=== PATIENT | female | born 1945 | race Caucasian/White ===

== ENCOUNTER 2020-01-16 05:05 | Observation (INO) ==
--- NOTE | 2019-12-12 15:16 | PAT Medication Instructions ---
Medication Instructions Date of Service December 12, 2019 Home Medications Medication Instructions Recorded gabapentin 300 mg capsule 300 mg PO TID #90 cap 09/20/19 bupropion HCl 200 mg tablet,12 hr 200 mg PO BID #180 ea 10/02/19 sustained-release tramadol 50 mg tablet 100 mg PO Q12H PRN #60 tab 10/29/19 calcium carbonate 600 mg (1,500 mg)-vitamin D3 400 unit tablet 1 tab PO BID gabapentin 300 mg capsule 300 mg PO TID bupropion HCl 200 mg tablet,12 hr sustained-release 200 mg PO BID tramadol 50 mg tablet 100 mg PO Q12H PRN aspirin 1 tab PO QAM cholecalciferol (vitamin D3) 2,000 units PO QAM folic acid 1 mg PO QAM meloxicam 15 mg PO QAM omeprazole 40 mg PO QAM sertraline 100 mg PO QAM vitamin F75-[id number] acid 1 tab PO QAM ASK your surgeon for instructions meloxicam 15 mg PO QAM DO NOT take the morning of surgery calcium carbonate 600 mg (1,500 mg)-vitamin D3 400 unit tablet 1 tab PO BID cholecalciferol (vitamin D3) 2,000 units PO QAM folic acid 1 mg PO QAM vitamin I99-lzpfv acid 1 tab PO QAM Take morning of surgery With a small sip of water, OTHERWISE NOTHING TO EAT OR DRINK AFTER MIDNIGHT: gabapentin 300 mg capsule 300 mg PO TID bupropion HCl 200 mg tablet,12 hr sustained-release 200 mg PO BID tramadol 50 mg tablet 100 mg PO Q12H PRN (if needed, may be taken up to four hours before surgery) aspirin 1 tab PO QAM omeprazole 40 mg PO QAM sertraline 100 mg PO QAM Take evening before surgery calcium carbonate 600 mg (1,500 mg)-vitamin D3 400 unit tablet 1 tab PO BID gabapentin 300 mg capsule 300 mg PO TID bupropion HCl 200 mg tablet,12 hr sustained-release 200 mg PO BID tramadol 50 mg tablet 100 mg PO Q12H PRN (if needed) Other Notes If you have any questions please call us at [phone] or [phone] or [phone] or [phone]
--- NOTE | 2019-12-13 11:29 | Anesthesiology Consultation ---
Date of Service December 13, 2019 Assessment & Plan (1) Encounter for pre-operative examination: COVID Status: As of 12/12 assessment, patient denies travel to endemic area, known exposure/sick contacts, or symptoms of COVID19. Patient instructed that they and their household members must follow strict social distancing guidelines, wear a mask in public and avoid travel for 14 days prior to surgery. Preoperative COVID19 testing to be completed prior to surgery per surgeon's brandon ramirez (pt reports 01/09). Patient made aware to self-isolate as much as possible between COVID testing and surgery. Chart Review Chart Review: Acceptable Risk for Surgery and Patient seen in Pre Admission Testing Teaching & Discussion Instructed NPO after midnight before surgery, except medications with 15 cc of water. Medication instructions provided according to the PAT guidelines. History Surgery Operation Date: 01/16/20 08:45 Proposed Procedures p Left Total Knee Arthroplasty - Otilio Murphy MD Height/Weight Height: 5 ft 4 in Weight: 73.8 kg Allergies Allergy/AdvReac Type Severity Reaction Status Date / Time No Known Allergies Allergy Verified 12/11/19 12:48 Medications Home Medications Medication Instructions Recorded Confirmed Last Taken calcium carbonate 600 mg (1,500 1 tab PO BID #180 tab 01/12/19 12/11/19 Unknown mg)-vitamin D3 400 unit tablet gabapentin 300 mg capsule 300 mg PO TID #90 cap 09/20/19 12/11/19 Unknown bupropion HCl 200 mg tablet,12 hr 200 mg PO BID #180 ea 10/02/19 12/11/19 Unknown sustained-release tramadol 50 mg tablet 100 mg PO Q12H PRN #60 tab 10/29/19 12/11/19 Unknown aspirin 1 tab PO QAM 12/11/19 12/11/19 Unknown cholecalciferol (vitamin D3) 2,000 units PO QAM 12/11/19 12/11/19 Unknown folic acid 1 mg PO QAM 12/11/19 12/11/19 Unknown meloxicam 15 mg PO QAM 12/11/19 12/11/19 Unknown omeprazole 40 mg PO QAM 12/11/19 12/11/19 Unknown sertraline 100 mg PO QAM 12/11/19 12/11/19 Unknown vitamin S24-bbigf acid 1 tab PO QAM 12/11/19 12/11/19 Unknown Past Medical History Medical History Anxiety Depression GERD (gastroesophageal reflux disease) Neuropathy Osteoarthritis Exercise / Class Metabolic Activity II 4-5 Yardwork/Stairs/Walk up hill (Denies CP or SOB with 1 FOS) Past Family History Family History Mother Alcoholism Depression Suicide Father Myocardial infarction Hypertension Other No family history of adverse response to anesthesia Past Surgical History Surgical History H/O shoulder surgery Rt History of colonoscopy History of tonsillectomy History of tooth extraction Past Anesthesia History No Hx of Anesthesia Complications and No Family Hx of Anesthesia Complications History of PONV No Hx of PONV and No Hx of Motion Sickness Social History Smoking Status: Former smoker tobacco type: cigarettes Do You Dip or Chew Tobacco: No Smoking End Date: 30 years ago Hx Alcohol Use: No Hx Substance Use: No substance use type: does not use Review of Systems Pt denies any recent chest pain, shortness of breath, palpitations, cough, fever, URI, or uncontrolled acid reflux (controlled with med). Physical Exam Vital Signs BP: 114/68 P: 79bpm SPO2: 98% RA T: 98.4 F R: 12 ENMT Mouth: + dentures (upper and lower partials) and + loose teeth (very slightly loose upper incisors); no chipped teeth Thyromental Distance: > or= 3.5 Finger Breadths Mallampati Class: II Neck normal visual inspection; neck extension not limited Respiratory normal respiratory effort Auscultation: lungs clear to auscultation bilaterally Cardiovascular Rate/Rhythm: regular rate and regular rhythm Heart Sounds: no murmur Vessels: no carotid bruit Extremities: no edema Testing Laboratory Results 12/13/19 11:19 12/13/19 11:19 PT 10.6 Seconds (9.0-12.0) 12/13/19 11: INR 1.0 (0.9-1.1) 12/13/19 11:19 APTT 28.5 Seconds (21.0-31.0) 12/13/19 11:19 Hemoglobin A1c 5.7 % (4.5-5.6) H 12/13/19 11:19 Urine Color Yellow 12/13/19 11:19 Urine Appearance Clear (Clear) 12/13/19 11:19 Urine pH 6.5 (4.5-7.5) 12/13/19 11:19 Ur Specific [place] 1.008 (1.000-1.030) 12/13/19 11:19 Urine Protein Negative (Negative) 12/13/19 11:19 Urine Glucose (UA) Negative (Negative) 12/13/19 11:19 Urine Ketones Negative (Negative) 12/13/19 11:19 Urine Nitrite Negative (Negative) 12/13/19 11:19 Ur Leukocyte Esterase Trace (Negative) H 12/13/19 11:19 Urine WBC (Auto) 1-5 /hpf (0-5) 12/13/19 11:19 Urine RBC (Auto) 0-4 /hpf (0-4) 12/13/19 11:19 U Hyaline Cast (Auto) 0 /lpf (0-5) 12/13/19 11:19 U Epithel Cells (Auto) 10-20 /lpf (0-5) H 12/13/19 11:19 Urine Bacteria (Auto) Negative (Negative) 12/13/19 11:19 Blood Type B Positive 12/13/19 11:54 Antibody Screen NEGATIVE 12/13/19 11:54 Electrocardiogram Date: 12/13/19 Findings: + NSR @ (75bpm) Nonspecific ST abnormality. Chest X-Ray Date: 12/13/19 Findings: + NAD
[2019-12-13 12:03] LABS: Basophils # (auto) 0.02 K/uL (0-0.2); Basophils % (auto) 0.2 %; Eosinophils # (auto) 0.19 K/uL (0-0.5); Eosinophils % (auto) 2.1 %; Hematocrit (blood only) 45.6 % (37-47); Hemoglobin 14.3 g/dL (12.0-16.0); Immature Granulocytes # (auto) 0.02 K/uL (0.00-0.02); Immature Granulocytes % (auto) 0.2 %; Lymphocytes # (auto) 2.04 K/uL (1.2-3.4); Lymphocytes % (auto) 22.6 %; Mean Corpuscular Hemoglobin 27.8 pg (25-34); Mean Corpuscular Hgb Conc 31.4 g/dL (32-36); Mean Corpuscular Volume 88.7 fL (80-100); Mean Platelet Volume 10.3 fL (7.4-10.4); Monocytes # (auto) 0.52 K/uL (0.11-0.59); Monocytes % (auto) 5.8 %; Neutrophils # (auto) 6.23 K/uL (1.4-6.5); Neutrophils % (auto) 69.1 %; Platelet Count 312 K/uL (130-400); RDW Coefficient of Variation 13.5 % (11.5-14.5); RDW Standard Deviation 44.1 fL (36.4-46.3); Red Blood Count 5.14 M/uL (4.2-5.4); White Blood Count 9.02 K/uL (4.8-10.8)
--- NOTE | 2019-12-13 12:06 | XRay Report ---
XR chest Pre-admission PA/Lat CLINICAL HISTORY: Preoperative chest COMPARISON STUDY: No previous studies for comparison. FINDINGS: The cardiac and mediastinal contours are normal. There is no evidence of focal pulmonary co nsolidation. There is no evidence of failure. No pleural effusions are visualized.[ IMPRESSION: No active disease in the chest. ACT 112: Negative or not required by law. Electronically signed by: Nicola Romo M.D. 12/13/2019 12:05 PM
[2019-12-13 12:10] LABS: Appearance Urine Clear (Clear); Bacteria Urine Automated Negative (Negative); Bilirubin Urine Negative (Negative); Blood Urine Negative (Negative); Cast Urine Automated 0 /lpf (0-5); Color Urine Yellow; Glucose Urine UA Negative (Negative); Ketones Urine Negative (Negative); Leukocyte Esterase Urine Trace (Negative); Nitrite Urine Negative (Negative); Protein Urine Negative (Negative); RBC Urine Automated 0-4 /hpf (0-4); Specific Gravity Urine 1.008 (1.000-1.030); Urobilinogen Urine Negative (Negative); pH Urine 6.5 (4.5-7.5)
[2019-12-13 12:18] LABS: Partial Thromboplastin Time 28.5 Seconds (21.0-31.0); Prothrombin Time 10.6 Seconds (9.0-12.0)
[2019-12-13 12:25] LABS: Estimated Average Glucose 117 mg/dl; Hemoglobin A1C 5.7 % (4.5-5.6)
--- NOTE | 2019-12-13 12:49 | Electrocardiogram Report ---
Test Reason : Blood Pressure : / mmHG Vent. Rate : 075 BPM Atrial Rate : 075 BPM P-R Int : 184 ms QRS Dur : 084 ms QT Int : 382 ms P-R-T Axes : 072 001 071 degrees QTc Int : 426 ms Normal sinus rhythm Nonspecific ST abnormality No previous ECGs available Confirmed by Alexandre Buchanan ([id number]) on 12/13/2019 12:48:44 PM Referred By: Otilio Murphy Confirmed By:Luis A Buchanan
[2019-12-13 13:48] LABS: Albumin Level 3.7 gm/dl (3.4-5.0); BUN Creatinine Ratio 10.7 (10-20); Calcium 9.2 mg/dl (8.5-10.1); Creatinine Clr Calc Pharmacy 44.8 ml/min; Est GFR (African American) 57.7; Est GFR (Non-African American) 49.8; Potassium 4.3 mmol/L (3.5-5.1)
--- NOTE | 2020-01-15 19:43 | History and Physical Report ---
DATE OF ADMISSION: 01/16/2020 CHIEF COMPLAINT: Chronic left knee pain and instability. HISTORY OF PRESENT ILLNESS: This is a 74-year-old female patient of Dr. Murphy'floresita complaining of chronic left knee pain, longstanding, now progressively getting worse. The patient has failed conservative treatment including tramadol, anti-inflammatories, home exercise program and the use of a brace. She has been diagnosed with end-stage osteoarthritis per clinical and radiographic exams. The patient has increased pain with weightbearing activities and her pain does interfere with her activities of daily living. PAST MEDICAL HISTORY: Acid reflux, rheumatoid arthritis, otherwise a healthy 74-year-old female. SOCIAL HISTORY: Nonsmoker and nondrinker. PAST SURGICAL HISTORY: Bilateral shoulder surgery in the past. FAMILY HISTORY: Noncontributory. REVIEW OF SYSTEMS: Chronic left knee pain and instability. Otherwise, denies any shortness of breath, chest pain, nausea, vomiting or any other joint complaints. MEDICATIONS: 1. Sertraline 100 mg daily. 2. Omeprazole 40 mg daily. 3. Bupropion 200 mg twice daily. 4. Gabapentin 100 mg twice daily. 5. Tramadol 50 mg as needed. 6. Aspirin 81 mg daily. 7. Vitamin D3 50 mcg daily. 8. Calcium carbonate with vitamin D3 600 mg daily. 9. Meloxicam 15 mg daily. 10. Vitamin B12 daily. 11. Folic acid daily. ALLERGIES: No known drug allergies. PHYSICAL EXAMINATION: GENERAL: Well-developed, well-nourished 74-year-old female in no acute distress. She is alert and oriented x3 and pleasant. HEENT: Normocephalic, atraumatic. Extraocular motions are intact. Pupils are equal and reactive to light. HEART: Regular rate and rhythm, no murmurs. LUNGS: Clear. ABDOMEN: Soft, nontender, bowel sounds present. EXTREMITIES: Left knee valgus deformity, lateral joint line tenderness, mild effusion. Positive lateral Tamanna's. Limited motion of 120. 5/5 strength. Neurologically and neurovascularly intact left lower extremity. DIAGNOSES: Left knee end-stage osteoarthritis, rheumatoid arthritis, acid reflux. PLAN: The patient was advised of her diagnosis. Indications, risks, benefits, postop course have all been reviewed. The patient wished to proceed with a left total knee arthroplasty. Necessary consent forms, preoperative testing and clearances will be obtained.
[2020-01-16] MEDS ORDERED: TRANEXAMIC ACID 1,000 MG **IV Pre-op IV SCH (06:00)
[2020-01-16] MEDS ORDERED: ROPIVACAINE 0.5% HCL/PF 150 MG, BUPIVACAINE 0.5% MPF 30 ML, EPINEPHrine 30MG/30ML (OR U... INSTIL SCH (06:00)
[2020-01-16] MEDS ORDERED: LR 500ML BOLUS, THEN 15ML/HR IV SCH (06:00)
[2020-01-16] MEDS ORDERED: ACETAMINOPHEN 500 MG TAB PO SCH (06:00)
[2020-01-16] MEDS ORDERED: GABAPENTIN 300 MG CAP PO SCH (06:00)
[2020-01-16] MEDS ORDERED: FAMOTIDINE 20 MG TAB PO SCH (06:00)
[2020-01-16] MEDS ORDERED: CeleBREX 200 MG CAP PO SCH (06:00)
[2020-01-16] MEDS ORDERED: dexAMETHasone 4 MG TAB PO SCH (06:00)
[2020-01-16] MEDS ORDERED: METOCLOPRAMIDE HCL 10 MG TABLET PO SCH (06:00)
[2020-01-16] MEDS ORDERED: ceFAZolin 1000MG 1,000 MG/7.5 ML SYR IV SCH (06:00)
[2020-01-16] MEDS ORDERED: TRANEXAMIC ACID 1,000 MG **IV Intra-op IV SCH (06:00)
[2020-01-16] MEDS ORDERED: BUPIVACAINE 0.5 % 5 MG/1 ML PF 10ML VIAL ONE (06:23)
[2020-01-16] MEDS ORDERED: BUPIVACAINE 0.25% 30 ML VIAL ONE (06:23)
[2020-01-16] MEDS ORDERED: ePHEDrine sulfate 50 MG/ML AMP IV PRN (06:32)
[2020-01-16] MEDS ORDERED: LIDOCAINE HCL 2% 2 ML VIAL/AMP(20MG/ML) INFIL ONE (06:32)
[2020-01-16] MEDS ORDERED: fentaNYL citrate 100 MCG/2 ML VIAL IV PRN (06:32)
[2020-01-16] MEDS ORDERED: PROPOFOL IV EMULSION 10 MG/ML 20 ML VIAL IV ONE (06:32)
[2020-01-16] MEDS ORDERED: ONDANSETRON INJ 2 MG/ML 2 ML VIAL ONE (06:32)
[2020-01-16] MEDS ORDERED: ATROPINE SULFATE 0.1 MG/ML 10ML SYR IV PRN (06:32)
[2020-01-16] MEDS ORDERED: ONDANSETRON INJ 2 MG/ML 2 ML VIAL IV PRN ×2 (06:32→12:52)
[2020-01-16] MEDS ORDERED: MIDAZOLAM HCL 1 MG/ML 2ML VIAL ONE (06:33)
[2020-01-16] MEDS ORDERED: fentaNYL citrate 100 MCG/2 ML VIAL ONE (06:33)
[2020-01-16] MEDS ORDERED: ORTHO JOINT ANESTHETIC ONE (06:41)
[2020-01-16] MEDS ORDERED: BACITRACIN INJ 50,000 UNIT VIAL ONE (06:45)
--- NOTE | 2020-01-16 06:45 | History & Physical Bridge Note ---
Date of Service January 16, 2020 History & Physical Bridge Note I have examined the patient, reviewed the History & Physical and in the interval since the performance of the History & Physical I have noted the following changes of clinical significance: no changes noted
--- NOTE | 2020-01-16 08:52 | Operative Report ---
Post Operative Report Pre & Post Diagnosis Operation Date: 01/16/20 07:00 Pre-Op Diagnosis: Osteoarthritis, Left Knee Post-Op Diagnosis: Osteoarthritis, Left Knee I identified the patient and participated in the time-out.: Yes Procedure Operation Date: 01/16/20 07:00 Actual Procedures p Left Total Knee Arthroplasty(Left) - Otilio Murphy MD Surgeon Otilio Murphy MD Fruit Trimmer Giovanni MELÉNDEZ Estimated Blood Loss 5 Findings Consistent with Post-Op Diagnosis Specimens Bone cuts Drains 2 Hemovac Anesthesia Type MAC Spinal Regional Complications none Disposition Accompanied Patient To Recovery: No Disposition: Recovery Room Indications 74-year-old female with chronic bilateral knee pain with valgus knees [id number] lateral compartment bilaterally left more painful than right. Description of Procedure Patient was taken to the operating room placed supine on the operating table and anesthetized under spinal MAC regional anesthesia. Exam under anesthesia demonstrated 0 through 100 degrees range of motion valgus knee no pseudolaxity. A pneumatic tourniquet was placed about the thigh of the left lower extremity. The left lower extremity was prepped and draped in usual fashion. The leg was elevated exsanguinated with an Esmarch bandage and the pneumatic was raised to 325 mm mercury. An anterior incision was made across the left knee. The skin was incised longitudinally subcutaneous flaps were elevated and an incision was made through the medial retinaculum extending up into the mid third of the quadriceps tendon and extended down to the medial tibial tubercle. Intra- articular findings demonstrated patellofemoral and lateral compartment osteoarthritis grade 4 lesion lateral facet patella and grade 4 osteoarthritis lateral compartment [id number]. The knee was exposed by excising the infrapatellar fat pad, excising the meniscal remnants and anterior cruciate ligament. Any inflamed synovial tissue was resected. The fat pad over the anterior femur was resected for placement of the component in that area. The lateral synovial bands were release. The femur was exposed. The custom femoral cutting block was pinned in position. The distal femoral cutting block was applied. The distal femoral cut was made with the oscillating saw. The size 9, 4-in-1 cutting block was placed. The anterior and posterior chamfer cuts were made. The knee was extended and a subperiosteal peel lateral release was performed around the patella. The patella width was measured and width was reproduced using freehand cut technique. The 32 x 8.5 millimeter symmetrical patella was used. 3 drill holes are made for the pegs. The tibia was exposed. A custom tibial cutting block was positioned and drill holes were made for the cutting guide. Cutting guide was placed and the proximal cut was made with the oscillating saw. All osteophytes were resected. The lamina international logistics analyst was used to assess ligamentous balance and the ligaments were balanced in extension and flexion. The tibia was reexposed and measured for a size D tibial component. This was externally rotated in line with the tibial tubercle and the fixation pins were drilled. The proximal tibia was fashioned with the drill and punch. The size 9 CR femoral trial was inserted. The trial MC inserts were used. The 10 MC mm insert gave balanced ligaments through full range of motion. The patella tracked centrally. the trials were removed. The orthomix anesthetic cocktail was injected per protocol. The knee was then copiously irrigated with pulsatile lavage antibiotic solution with bacitracin. The final components were cemented with Simplex cement. The final components were persona left narrow size 9 CR femoral component, D tibia, 10 mm MC tibial polyethylene, 32 x 8.5 mm symmetrical patella. After the cement cured with the knee in full extension the Betadine soak was used per protocol. The knee joint was copiously irrigated with antibiotic solution with bacitracin. 2 drains were brought out laterally and connected to a Hemovac. The quadriceps tendon and medial retinaculum were closed with interrupted [id number] #1 Vicryl sutures. The knee was taken through a full range of motion and repair was secure. The subcutaneous tissues were closed with 2-0 Vicryl sutures and skin was closed with joseline. Sterile dressings were applied and the patient tolerated the procedure well. Giovanni MELÉNDEZ my physician assistant financial accountant, assisted in soft tissue retraction instrument management leg positioning the closure and will participate in the postoperative care of the patient. I attest to the content of the Intraoperative Record and any orders documented therein. Any exceptions are noted below.
--- NOTE | 2020-01-16 09:59 | XRay Report ---
XR knee LT 1 or 2V routine CLINICAL HISTORY: Postoperative evaluation. COMPARISON: None FINDINGS: Alignment of the total left knee arthroplasty is anatomic. There is no periprosthetic frac ture or unexpected radiopaque foreign body. There are drains and skin josleine. IMPRESSION: Expected findings following total left knee arthroplasty. ACT 112: Negative or not required by law. Electronically signed by: Dusty Oliva M.D. 01/16/2020 9:57 AM
[2020-01-16] MEDS ORDERED: MAGNESIUM HYDROXIDE SUSP 30 ML UDC PO PRN (12:52)
[2020-01-16] MEDS ORDERED: bisacodyL 10 MG SUPP PR PRN (12:52)
[2020-01-16] MEDS ORDERED: oxyCODONE HCL IR 5 MG TAB (IMMEDIATE RELEASE) PO PRN (12:52)
[2020-01-16] MEDS ORDERED: HYDROmorphone INJ 0.5 MG/0.5 ML SYR IV PRN (12:52)
[2020-01-16] MEDS ORDERED: NALOXONE HCL 0.4 MG/1 ML VIAL/CARP IV PRN (12:52)
[2020-01-16] MEDS: SODIUM CHLORIDE 0.9% 1000ML 1,000 ML IV SCH ×2 (13:34→22:41)
[2020-01-16] MEDS: ACETAMINOPHEN 500 MG TAB PO SCH ×2 (14:17→21:30)
[2020-01-16] MEDS: GABAPENTIN 300 MG CAP PO SCH ×2 (14:50→20:41)
--- NOTE | 2020-01-16 14:53 | Anesthesiology Progress Note ---
Date of Service January 16, 2020 Anesthesia Post Procedure Vital Signs Vital Signs: Temp Pulse Pulse Pulse Resp BP BP 01/16/20 14:13 36.5 C 82 16 98/52 L 01/16/20 13:10 36.7 C 76 18 104/57 L 01/16/20 12:10 36.4 C L 71 18 95/57 L 01/16/20 11:40 36.7 C 70 18 102/65 01/16/20 11:30 36.3 C L 73 14 106/63 01/16/20 11:15 74 15 102/59 L 01/16/20 11:00 74 19 96/57 L 01/16/20 10:45 73 12 96/56 L 01/16/20 10:30 75 17 95/59 L 01/16/20 10:15 70 16 106/62 01/16/20 10:00 70 15 109/67 01/16/20 09:45 69 14 111/62 01/16/20 09:35 69 13 110/63 01/16/20 09:25 36.3 C L 70 21 114/64 01/16/20 09:15 69 14 109/66 01/16/20 09:05 70 13 115/61 01/16/20 08:59 36.5 C 70 13 101/55 L 01/16/20 05:15 36.8 C 78 16 140/86 Pulse Ox 01/16/20 14:13 96 01/16/20 13:10 97 01/16/20 12:10 95 01/16/20 11:40 94 01/16/20 11:30 97 01/16/20 11:15 96 01/16/20 11:00 96 01/16/20 10:45 96 01/16/20 10:30 98 01/16/20 10:15 95 01/16/20 10:00 93 01/16/20 09:45 92 01/16/20 09:35 92 01/16/20 09:25 96 01/16/20 09:15 92 01/16/20 09:05 92 01/16/20 08:59 92 01/16/20 05:15 96 Transfer of Care Handoff Completed per policy Notes Mental Status: alert / awake / arousable and participated in evaluation Patient Amnestic to Procedure: Yes Nausea / Vomiting: adequately controlled Pain: adequately controlled Airway Patency, RR, SpO2: stable & adequate BP & HR: stable & adequate Hydration State: stable & adequate Neuraxial Anesthesia: was administered and sensory block is resolving Anesthetic Complications: no major complications apparent and Pt Satisfied with anesthetic care
--- NOTE | 2020-01-16 15:24 | Hospitalist Consultation ---
Date of Consultation January 16, 2020 Assessment & Plan (1) Post-operative state: Post TKA 01/15 Pain control, dvt proph per primary Monitor for acute blood loss - cbc am (2) Depression: continue bupropion, sertraline (3) Hypotension: Blood pressure 98/52, asymptomatic Continue NSS @ 100 mls/hr (4) Pre-diabetes: Last A1c in December 08.7 Monitor bsgs on morning prp especially with perioperative dexamethasone given (5) GERD (gastroesophageal reflux disease): Continue ppi Medicine will sign off at this time. Please call with any questions or concerns History of Present Illness Attending Physician: Otilio Murphy MD History of Present Illness Ms. Valadez is post TKA today. She is feeling well, no complaints. Pmhx: depression Family hx: depression Social: lives alone, , non smoker, no alcohol Allergies Allergy/AdvReac Type Severity Reaction Status Date / Time No Known Allergies Allergy Verified 01/16/20 05:30 Home Medications Home Medications Medication Instructions Recorded Confirmed Type calcium carbonate 600 mg (1,500 1 tab PO BID #180 tab 01/12/19 01/16/20 History mg)-vitamin D3 400 unit tablet gabapentin 300 mg capsule 300 mg PO TID #90 cap 09/20/19 01/16/20 Rx bupropion HCl 200 mg tablet,12 hr 200 mg PO BID #180 ea 10/02/19 01/16/20 Rx sustained-release tramadol 50 mg tablet 100 mg PO Q12H PRN #60 tab 10/29/19 01/16/20 Rx aspirin 1 tab PO QAM 12/11/19 01/16/20 History cholecalciferol (vitamin D3) 2,000 units PO QAM 12/11/19 01/16/20 History folic acid 1 mg PO QAM 12/11/19 01/16/20 History meloxicam 15 mg PO QAM 12/11/19 01/16/20 History omeprazole 40 mg PO QAM 12/11/19 01/16/20 History sertraline 100 mg PO QAM 12/11/19 01/16/20 History vitamin L04-jjnfr acid 1 tab PO QAM 12/11/19 01/16/20 History Patient History Medical History (Updated 01/16/20 @ 15:22 by PAULA Benito) Anxiety Depression GERD (gastroesophageal reflux disease) Neuropathy Osteoarthritis Surgical History (Updated 01/16/20 @ 15:17 by PAULA Benito) H/O shoulder surgery Rt History of colonoscopy History of tonsillectomy History of tooth extraction Family History Mother Alcoholism Depression Suicide Father Myocardial infarction Hypertension Other No family history of adverse response to anesthesia Social History Smoking Status: Former smoker Age Started Using Tobacco: 31; Age Quit Using Tobacco: 46; Smoking End Date: 30 years ago; Second Hand Exposure: No; Do You Dip or Chew Tobacco: No; Tobacco Cessation Education Requested by Patient: No Hx Alcohol Use: No Hx Substance Use: No Preferred Language: Kenyan Communication Ability: Effective Visual Impairment: No Limitations Hearing Ability: Normal Diabetes Specialist Required: No Beliefs That Will Affect Care: None marital status: / Current Living Situation: Alone Current Living Situation Comment: dtr will be staying pt following surgery current occupational status: retired Feels Safe at Home: Yes Safety Concerns: Feels Safe At This Time Childhood Exposure to Second-Hand Smoke: Yes caffeine: Yes (coffee) Dental Care, Regularly: Yes Physical Activity Frequency: 3-4 Times per Week Physical Activity Frequency Comment: walking Seatbelt Use: always Sunscreen Use: No Assistive Devices: Glasses Assistive Devices Comment: upper and lower partial Review of Systems Constitutional: no fever and no body aches Respiratory: no cough, no chest congestion and no dyspnea Cardiovascular: no chest pain and no dyspnea Gastrointestinal: no abdominal pain and no vomiting Genitourinary: no dysuria and no urinary hesitancy Musculoskeletal: no back pain and no joint pain Integumentary: no rash Physical Exam Physical Exam: General: no distress Eyes: normal inspection, PERLL Respiratory: chest non tender, clear to auscultation, normal breath sounds, no respiratory distress, no accessory muscle use Cardiac: regular rate and rhythm, no rub or gallop, no murmur, no edema, no jvd GI/: active bowel sounds, no abd pain or tenderness, soft, non distended Extremities: normal range of motion, normal strength, non tender Neuro/Psych: alert and oriented x 3, normal mood and affect Skin: normal color, dry Results & Data Results & Data ([facility]) Vital Signs (Past 12 Hours) Vital Signs Temp Pulse Pulse Pulse Resp BP BP 01/16/20 14:13 36.5 C 82 16 98/52 L 01/16/20 13:10 36.7 C 76 18 104/57 L 01/16/20 12:10 36.4 C L 71 18 95/57 L 01/16/20 11:40 36.7 C 70 18 102/65 01/16/20 11:30 36.3 C L 73 14 106/63 01/16/20 11:15 74 15 102/59 L 01/16/20 11:00 74 19 96/57 L 01/16/20 10:45 73 12 96/56 L 01/16/20 10:30 75 17 95/59 L 01/16/20 10:15 70 16 106/62 01/16/20 10:00 70 15 109/67 01/16/20 09:45 69 14 111/62 01/16/20 09:35 69 13 110/63 01/16/20 09:25 36.3 C L 70 21 114/64 01/16/20 09:15 69 14 109/66 01/16/20 09:05 70 13 115/61 01/16/20 08:59 36.5 C 70 13 101/55 L 01/16/20 05:15 36.8 C 78 16 140/86 Pulse Ox 01/16/20 14:13 96 01/16/20 13:10 97 01/16/20 12:10 95 01/16/20 11:40 94 01/16/20 11:30 97 01/16/20 11:15 96 01/16/20 11:00 96 01/16/20 10:45 96 01/16/20 10:30 98 01/16/20 10:15 95 01/16/20 10:00 93 01/16/20 09:45 92 01/16/20 09:35 92 01/16/20 09:25 96 01/16/20 09:15 92 01/16/20 09:05 92 01/16/20 08:59 92 01/16/20 05:15 96 PG Care Time/CCT Total # of Minutes Spent Total Time Spent with Patient: Total time spent is greater than 50% in coor dination of care (as documented) at patient's floor/unit and/or counseling patient: Coding Level of Care Code 67516 Inpt Consult Level 4 Diagnoses Post-operative state Z98.890 Depression F32.9 Hypotension I95.9 Pre-diabetes R73.03 GERD (gastroesophageal reflux disease) K21.9
[2020-01-16] MEDS: ceFAZolin 1000MG 1,000 MG/7.5 ML SYR IV SCH ×2 (15:30→22:33)
[2020-01-16] MEDS: FERROUS GLUCONATE 324 MG TAB PO SCH (17:45)
[2020-01-16] MEDS: buPROPion SR 100 MG TABCR PO SCH (20:41)
[2020-01-16] MEDS: ASPIRIN 81 MG ECTAB PO SCH (20:41)
[2020-01-16] MEDS: DOCUSATE SODIUM 100 MG CAP PO SCH (20:41)
[2020-01-16] MEDS: CeleBREX 200 MG CAP PO SCH (20:41)
[2020-01-16] MEDS ORDERED: SENNA 8.6 MG TAB PO SCH (21:00)
[2020-01-17] MEDS: ACETAMINOPHEN 500 MG TAB PO SCH ×2 (05:56→13:31)
[2020-01-17 07:22] LABS: Hematocrit (blood only) 33.1 % (37-47); Hemoglobin 10.6 g/dL (12.0-16.0); Mean Corpuscular Hemoglobin 28.6 pg (25-34); Mean Corpuscular Volume 89.2 fL (80-100); Mean Platelet Volume 10.5 fL (7.4-10.4); Platelet Count 221 K/uL (130-400); RDW Coefficient of Variation 13.6 % (11.5-14.5); RDW Standard Deviation 44.8 fL (36.4-46.3); Red Blood Count 3.71 M/uL (4.2-5.4); White Blood Count 11.84 K/uL (4.8-10.8)
[2020-01-17 07:46] LABS: BUN Creatinine Ratio 15.3 (10-20); Creatinine Clr Calc Pharmacy 49.7 ml/min; Est GFR (African American) 67.2; Est GFR (Non-African American) 57.9; Potassium 4.1 mmol/L (3.5-5.1)
--- NOTE | 2020-01-17 08:15 | Orthopedic Progress Note ---
Date of Service January 17, 2020 Assessment & Plan (1) Osteoarthritis of left knee: Stop day 1 status post left total knee arthroplasty. Mild leukocytosis-patient asymptomatic at this time. Likely due to surgical stress and preoperative steroids. PT/OT protocols. Weightbearing as tolerated. DVT prophylaxis-aspirin p.o. twice daily, SCDfloresita, JOVANY barton. Pain management as written. DC planning-patient is planning for home health services upon discharge. Admission and Anticipated Discharge Date Admission Date: January 16, 2020 Subjective Postop day 1 Patient sitting up in bed this morning. Awake and alert. Complaints this morning. Pain is controlled. Denies shortness of breath, chest pain, lightheadedness. Physical Exam Physical Exam: Dressings are clean, dry, and intact. Calves are soft and nontender. Neurovascular intact. Toes are mobile. She has good dorsiflexion and plantarflexion of the left foot and ankle. Hemovac drainage was 80 mL from the previous shift. Results & Data ([facility]) Vital Signs (Past 12 Hours) Vital Signs Temp Pulse Resp BP BP Pulse Ox 01/17/20 07:30 36.6 C 73 16 105/66 95 01/17/20 04:00 36.8 C 81 14 97/58 L 95 01/16/20 23:31 36.7 C 77 14 107/65 93 Laboratory Results Laboratory Results WBC 11.84 K/uL (4.8-10.8) H 01/17/20 06:52 RBC 3.71 M/uL (4.2-5.4) L 01/17/20 06:52 Hgb 10.6 g/dL (12.0-16.0) L 01/17/20 06:52 Hct 33.1 % (37-47) L 01/17/20 06:52 MCV 89.2 fL (80-100) 01/17/20 06:52 MCH 28.6 pg (25-34) 01/17/20 06:52 MCHC 32.0 g/dL (32-36) 01/17/20 06:52 RDW Std Deviation 44.8 fL (36.4-46.3) 01/17/20 06:52 RDW Coeff of Sammy 13.6 % (11.5-14.5) 01/17/20 06:52 Plt Count 221 K/uL (130-400) 01/17/20 06:52 MPV 10.5 fL (7.4-10.4) H 01/17/20 06:52 Immature Gran % (Auto) 0.2 % 12/13/19 11:19 Neut % (Auto) 69.1 % 12/13/19 11:19 Lymph % (Auto) 22.6 % 12/13/19 11:19 [place] % (Auto) 5.8 % 12/13/19 11:19 Eos % (Auto) 2.1 % 12/13/19 11:19 Baso % (Auto) 0.2 % 12/13/19 11:19 Neut # (Auto) 6.23 K/uL (1.4-6.5) 12/13/19 11:19 Lymph # (Auto) 2.04 K/uL (1.2-3.4) 12/13/19 11:19 [place] # (Auto) 0.52 K/uL (0.11-0.59) 12/13/19 11:19 Eos # (Auto) 0.19 K/uL (0-0.5) 12/13/19 11:19 Baso # (Auto) 0.02 K/uL (0-0.2) 12/13/19 11:19 Immature Gran # (Auto) 0.02 K/uL (0.00-0.02) 12/13/19 11:19 PT 10.6 Seconds (9.0-12.0) 12/13/19 11:19 INR 1.0 (0.9-1.1) 12/13/19 11:19 APTT 28.5 Seconds (21.0-31.0) 12/13/19 11:19 PTT Ratio 1.0 12/13/19 11:19 Sodium 144 mmol/L (136-145) 01/17/20 06:52 Potassium 4.1 mmol/L (3.5-5.1) 01/17/20 06:52 Chloride 115 mmol/L (98-107) H 01/17/20 06:52 Carbon Dioxide 24 mmol/L (21-32) 01/17/20 06:52 Anion Gap 5.0 (3-11) 01/17/20 06:52 BUN 15 mg/dl (7-18) 01/17/20 06:52 Creatinine 0.97 mg/dl (0.6-1.2) 01/17/20 06:52 Est Cr Clr Drug Dosing 49.7 ml/min 01/17/20 06:52 Est GFR ( Amer) 67.2 01/17/20 06:52 Est GFR (Non-Af Amer) 57.9 01/17/20 06:52 BUN/Creatinine Ratio 15.3 (10-20) 01/17/20 06:52 Glucose 95 mg/dl (70-99) 01/17/20 06:52 Estimat Average Glucose 117 mg/dl 12/13/19 11:19 Hemoglobin A1c 5.7 % (4.5-5.6) H 12/13/19 11:19 Calcium 8.0 mg/dl (8.5-10.1) L 01/17/20 06:52 Albumin 3.7 gm/dl (3.4-5.0) 12/13/19 11:19 Urine Color Yellow 12/13/19 11:19 Urine Appearance Clear (Clear) 12/13/19 11:19 Urine pH 6.5 (4.5-7.5) 12/13/19 11:19 Ur Specific [place] 1.008 (1.000-1.030) 12/13/19 11:19 Urine Protein Negative (Negative) 12/13/19 11:19 Urine Glucose (UA) Negative (Negative) 12/13/19 11:19 Urine Ketones Negative (Negative) 12/13/19 11:19 Urine Blood Negative (Negative) 12/13/19 11:19 Urine Nitrite Negative (Negative) 12/13/19 11:19 Urine Bilirubin Negative (Negative) 12/13/19 11:19 Urine Urobilinogen Negative (Negative) 12/13/19 11:19 Ur Leukocyte Esterase Trace (Negative) H 12/13/19 11:19 Urine WBC (Auto) 1-5 /hpf (0-5) 12/13/19 11:19 Urine RBC (Auto) 0-4 /hpf (0-4) 12/13/19 11:19 U Hyaline Cast (Auto) 0 /lpf (0-5) 12/13/19 11:19 U Epithel Cells (Auto) 10-20 /lpf (0-5) H 12/13/19 11:19 Urine Bacteria (Auto) Negative (Negative) 12/13/19 11:19 Blood Type B Positive 12/13/19 11:54 Antibody Screen NEGATIVE 12/13/19 11:54
[2020-01-17] MEDS: GABAPENTIN 300 MG CAP PO SCH ×2 (08:47→13:31)
[2020-01-17] MEDS: CeleBREX 200 MG CAP PO SCH (08:48)
[2020-01-17] MEDS: FERROUS GLUCONATE 324 MG TAB PO SCH (08:48)
[2020-01-17] MEDS: DOCUSATE SODIUM 100 MG CAP PO SCH (08:48)
[2020-01-17] MEDS: ASPIRIN 81 MG ECTAB PO SCH (08:48)
[2020-01-17] MEDS: buPROPion SR 100 MG TABCR PO SCH (08:49)
[2020-01-17] MEDS ORDERED: PANTOprazole 40 MG TAB PO SCH (09:00)
[2020-01-17] MEDS ORDERED: MULTIVITAMIN TAB PO SCH (09:00)
[2020-01-17] MEDS ORDERED: SERTRALINE HCL 100 MG TABLET PO SCH (09:00)
--- NOTE | 2020-01-20 07:24 | Discharge Summary ---
Date of Service January 20, 2020 Admission HPI Per Admitting Provider HISTORY OF PRESENT ILLNESS: This is a 74-year-old female patient of Dr. Murphy'floresita complaining of chronic left knee pain, longstanding, now progressively getting worse. The patient has failed conservative treatment including tramadol, anti-inflammatories, home exercise program and the use of a brace. She has been diagnosed with end-stage osteoarthritis per clinical and radiographic exams. The patient has increased pain with weightbearing activities and her pain does interfere with her activities of daily living. Admission Exam Per Admitting Provider PHYSICAL EXAMINATION: GENERAL: Well-developed, well-nourished 74-year-old female in no acute distress. She is alert and oriented x3 and pleasant. HEENT: Normocephalic, atraumatic. Extraocular motions are intact. Pupils are equal and reactive to light. HEART: Regular rate and rhythm, no murmurs. LUNGS: Clear. ABDOMEN: Soft, nontender, bowel sounds present. EXTREMITIES: Left knee valgus deformity, lateral joint line tenderness, mild effusion. Positive lateral Tamanna's. Limited motion of 120. 5/5 strength. Neurologically and neurovascularly intact left lower extremity. Principal Diagnosis Left knee djd Discharge Exam Physical Exam: Dressings are clean, dry, and intact. Calves are soft and nontender. Neurovascular intact. Toes are mobile. She has good dorsiflexion and plantarflexion of the left foot and ankle. Hemovac drainage was 80 mL from the previous shift. Results & Data ([facility]) Vital Signs (Past 12 Hours) Vital Signs Temp Pulse Resp BP BP Pulse Ox 01/17/20 07:30 36.6 C 73 16 105/66 95 01/17/20 04:00 36.8 C 81 14 97/58 L 95 01/16/20 23:31 36.7 C 77 14 107/65 93 Laboratory Results Laboratory Results WBC 11.84 K/uL (4.8-10.8) H 01/17/20 06:52 RBC 3.71 M/uL (4.2-5.4) L 01/17/20 06:52 Hgb 10.6 g/dL (12.0-16.0) L 01/17/20 06:52 Hct 33.1 % (37-47) L 01/17/20 06:52 Discharge Data Allergies Allergy/AdvReac Type Severity Reaction Status Date / Time No Known Allergies Allergy Verified 01/16/20 05:30 Consultations 01/13/20 14:14 Consult Hospitalist Routine 01/16/20 12:52 Consult Case Management - Discharge Planning Routine Procedures Performed Operation Date: 01/16/20 07:00 Actual Procedures p Left Total Knee Arthroplasty(Left) - Otilio Murphy MD Ordered Studies 01/16/20 05:00 US - OR guided needle placemen Routine Hospital Course (1) Osteoarthritis of left knee: Date of Service January 17, 2020 Assessment & Plan (1) Osteoarthritis of left knee: Stop day 1 status post left total knee arthroplasty. Mild leukocytosis-patient asymptomatic at this time. Likely due to surgical stress and preoperative steroids. PT/OT protocols. Weightbearing as tolerated. DVT prophylaxis-aspirin p.o. twice daily, SCDs, JOVANY hose. Pain management as written. DC planning-patient is planning for home health services upon discharge. Admission and Anticipated Discharge Date Admission Date: January 16, 2020 Pt was progressing well with her PT/OT. VSS. It was felt she was stable for dc to home. DC'd home with services. Subjective Postop day 1 Patient sitting up in bed this morning. Awake and alert. Complaints this morning. Pain is controlled. Denies shortness of breath, chest pain, l ightheadedness. Physical Exam Physical Exam: Dressings are clean, dry, and intact. Calves are soft and nontender. Neurovascular intact. Toes are mobile. She has good dorsiflexion and plantarflexion of the left foot and ankle. Hemovac drainage was 80 mL from the previous shift. Results & Data ([facility]) Vital Signs (Past 12 Hours) Vital Signs Temp Pulse Resp BP BP Pulse Ox 01/17/20 07:30 36.6 C 73 16 105/66 95 01/17/20 04:00 36.8 C 81 14 97/58 L 95 01/16/20 23:31 36.7 C 77 14 107/65 93 Laboratory Results Laboratory Results WBC 11.84 K/uL (4.8-10.8) H 01/17/20 06:52 RBC 3.71 M/uL (4.2-5.4) L 01/17/20 06:52 Hgb 10.6 g/dL (12.0-16.0) L 01/17/20 06:52 Hct 33.1 % (37-47) L 01/17/20 06:52 MCV 89.2 fL (80-100) 01/17/20 06:52 MCH 28.6 pg (25-34) 01/17/20 06:52 MCHC 32.0 g/dL (32-36) 01/17/20 06:52 RDW Std Deviation 44.8 fL (36.4-46.3) 01/17/20 06:52 RDW Coeff of Sammy 13.6 % (11.5-14.5) 01/17/20 06:52 Plt Count 221 K/uL (130-400) 01/17/20 06:52 MPV 10.5 fL (7.4-10.4) H 01/17/20 06:52 Immature Gran % (Auto) 0.2 % 12/13/19 11:19 Neut % (Auto) 69.1 % 12/13/19 11:19 Lymph % (Auto) 22.6 % 12/13/19 11:19 [place] % (Auto) 5.8 % 12/13/19 11:19 Eos % (Auto) 2.1 % 12/13/19 11:19 Baso % (Auto) 0.2 % 12/13/19 11:19 Neut # (Auto) 6.23 K/uL (1.4-6.5) 12/13/19 11:19 Lymph # (Auto) 2.04 K/uL (1.2-3.4) 12/13/19 11:19 [place] # (Auto) 0.52 K/uL (0.11-0.59) 12/13/19 11:19 Eos # (Auto) 0.19 K/uL (0-0.5) 12/13/19 11:19 Baso # (Auto) 0.02 K/uL (0-0.2) 12/13/19 11:19 Immature Gran # (Auto) 0.02 K/uL (0.00-0.02) 12/13/19 11:19 PT 10.6 Seconds (9.0-12.0) 12/13/19 11:19 INR 1.0 (0.9-1.1) 12/13/19 11:19 APTT 28.5 Seconds (21.0-31.0) 12/13/19 11: PTT Ratio 1.0 12/13/19 11:19 Sodium 144 mmol/L (136-145) 01/17/20 06:52 Potassium 4.1 mmol/L (3.5-5.1) 01/17/20 06:52 Chloride 115 mmol/L (98-107) H 01/17/20 06:52 Carbon Dioxide 24 mmol/L (21-32) 01/17/20 06:52 Anion Gap 5.0 (3-11) 01/17/20 06:52 BUN 15 mg/dl (7-18) 01/17/20 06:52 Creatinine 0.97 mg/dl (0.6-1.2) 01/17/20 06:52 Est Cr Clr Drug Dosing 49.7 ml/min 01/17/20 06:52 Est GFR ( Amer) 67.2 01/17/20 06:52 Est GFR (Non-Af Amer) 57.9 01/17/20 06:52 BUN/Creatinine Ratio 15.3 (10-20) 01/17/20 06:52 Glucose 95 mg/dl (70-99) 01/17/20 06:52 Estimat Average Glucose 117 mg/dl 12/13/19 11:19 Hemoglobin A1c 5.7 % (4.5-5.6) H 12/13/19 11: Calcium 8.0 mg/dl (8.5-10.1) L 01/17/20 06:52 Albumin 3.7 gm/dl (3.4-5.0) 12/13/19 11:19 Urine Color Yellow 12/13/19 11:19 Urine Appearance Clear (Clear) 12/13/19 11:19 Urine pH 6.5 (4.5-7.5) 12/13/19 11:19 Ur Specific [place] 1.008 (1.000-1.030) 12/13/19 11: Urine Protein Negative (Negative) 12/13/19 11:19 Urine Glucose (UA) Negative (Negative) 12/13/19 11:19 Urine Ketones Negative (Negative) 12/13/19 11:19 Urine Blood Negative (Negative) 12/13/19 11:19 Urine Nitrite Negative (Negative) 12/13/19 11: Urine Bilirubin Negative (Negative) 12/13/19 11:19 Urine Urobilinogen Negative (Negative) 12/13/19 11:19 Ur Leukocyte Esterase Trace (Negative) H 12/13/19 11:19 Urine WBC (Auto) 1-5 /hpf (0-5) 12/13/19 11:19 Urine RBC (Auto) 0-4 /hpf (0-4) 12/13/19 11:19 U Hyaline Cast (Auto) 0 /lpf (0-5) 12/13/19 11:19 U Epithel Cells (Auto) 10-20 /lpf (0-5) H 12/13/19 11:19 Urine Bacteria (Auto) Negative (Negative) 12/13/19 11:19 Blood Type B Positive 12/13/19 11:54 Antibody Screen NEGATIVE 12/13/19 11:54 Total Time Total Time Spent Total Time Spent (In Minutes): 5 Discharge Plan Discharge Items Patient Disposition: Home - Home Health Services Reason For Visit: Osteoarthritis, Left Knee Discharge Diagnosis: Osteoarthritis left knee Activity: Per Instructions section Weightbearing: Left weightbearing Weightbearing Comment: As tolerated with walker Non-emergency contact: Surgeon Call non-emergency contact if: your pain is not controlled, your temperature is above 101.5, your wound has increased redness and your wound has increased drainage Follow-up/Referrals: Harlan Rhodes MD [Primary Care Provider] - Diet: Carb Consistent or DM2 Addtl Attending Provider Instructions: ACTIVITY RECOMMENDATIONS: SELF CARE INSTRUCTIONS AFTER TOTAL KNEE REPLACEMENT A. You may need to continue a physical therapy program after discharge from the hospital. There are several options available to you. Your doctor will assist you in selecting the best one for you. 1. An out-patient facility 2 to 3 times a week for therapy or home therapy. 2. Continue working on all exercises taught to you in the hospital. Your goals should be to increase bending of your knee to 90 degrees and beyond and to fully straighten your knee. B. You may progress at your own pace from walking with a walker or crutches to a cane; then to no assistive devices. C. Make walking a part of your daily routine. Be up as much as comfortable with rest periods throughout the day. Rest with leg elevation is very important. Use the ice wrap frequently for the first 3-4 weeks. D. There are no restrictions on activities. You may ride in a car, shop, participate in mason foreman/superintendant and all social activities. E. Wear the long elastic stockings (JOVANY hose) 20 hours a day for 2 weeks after surgery. They can be removed several times a day for laundering and for a bath. F. You may shower, no tub baths until cleared by your doctor. SPECIAL CARE INSTRUCTIONS: VERY IMPORTANT TO READ AND REVIEW A. There are a few signs you need to watch for after you are home. Call [facility] if you notice any of the followin. Increased severe knee pain. Some pain is expected especially when you exercise. 2. Increased swelling in your leg or knee; pain or swelling of the calf muscle in either lower leg. 3. Any fluid drainage from the incision. 4. Shortness of breath or chest pain. B. Please call [facility] at if you have any concerns or questions about your operation or recovery. The doctor or his nurse will return your call promptly. C. You must take antibiotics before dental work, bladder, bowel or other surgery. Your doctor will provide you with a permanent care to carry describing this precaution. IMPORTANT: * REMEMBER TO TAKE ASPIRIN, 81 MG, TWICE DAILY FOR 4 WEEKS UNLESS OTHERWISE DIRECTED. THIS IS YOUR BLOOD THINNER. * CALL IF INCREASED PAIN, REDNESS, DRAINAGE OR FEVER GREATER THAT 101. * WEAR JOVANY HOSE 20 HOURS PER DAY FOR 2 WEEKS. * Emperatriz Dressing - This is a large suction dressing covering your incision. This will help pull any excess drainage from the wound and allow your incision to heal properly. You may shower with this if you can keep the unit outside of the shower. If any bleeding or leakage is noted please call your doctor's office. This will remain on your incision for 7 days and then should be removed. This can be done yourself or by the home nursing staff if applicable. The entire unit is disposable once removed. Once removed, keep incision clean and dry. If redness or drainage is noted, please call your surgeon. . FOLLOW UP VISIT: If appointment is not already scheduled: Please call [facility] to make a follow-up appointment for 2 weeks after your surgery at . Stand-Alone Forms: [facility] [employer], Opioid Pain Management, Smoking Cessation Medications and DC Order Prescriptions: New acetaminophen 500 mg Tablet 1,000 mg PO Q8 14 Days Qty: 84 RF: 0 aspirin 81 mg Tablet,Delayed Release (Dr/Ec) 81 mg PO BID 30 Days Qty: 60 RF: 0 celecoxib [Celebrex] 200 mg Capsule 200 mg PO BID 30 Days Qty: 60 RF: 0 oxycodone 5 mg Tablet 5 mg PO Q4H MDD 6 PRN (Reason: pain) Qty: 30 RF: 0 polyethylene glycol 3350 [Miralax] 17 gram powder in packet 17 g PO DAILY PRN (Reason: constipation) Qty: 5 RF: 0 Continued gabapentin 300 mg capsule 300 mg PO TID Qty: 90 RF: 2 calcium carbonate-vitamin D3 600 mg(1,500mg) -400 unit tablet 1 tab PO BID Qty: 180 RF: 0 bupropion HCl 200 mg tablet sustained-release 12 hr 200 mg PO BID Qty: 180 RF: 3 sertraline 100 mg tablet 100 mg PO QAM RF: 0 omeprazole 40 mg capsule,delayed release(DR/EC) 40 mg PO QAM RF: 0 folic acid 1 mg tablet 1 mg PO QAM RF: 0 vitamin [id number] acid 0.5-1 mg tablet 1 tab PO QAM RF: 0 cholecalciferol (vitamin D3) 50 mcg (2,000 unit) tablet 2,000 units PO QAM RF: 0 Discontinued tramadol 50 mg tablet 100 mg PO Q12H PRN (Reason: pain) Qty: 60 RF: 2 meloxicam 15 mg tablet 15 mg PO QAM RF: 0 aspirin 81 mg Tablet,Chewable 1 tab PO QAM RF: 0 Discharge Orders: Discharge Order (Routine); Ordered 01/17/20 Ordered By: Giovanni Lopez/Other Patient Handouts: DVT Post Op Prevention Admission Data Admit Date/Time: 01/16/20 09:09 Attending Provider: Otilio Murphy Admit Provider: Otilio Murphy Primary Care Provider: Harlan Rhodes Other Providers: Hemant Blood ; [facility] Other Interventions: Discharge Summary Assessment (RN) Last Done: 01/17/20 11:37
== END 2020-01-17 14:50 | disposition home health service (06) ==
LOC: ASU 05:05 → 3N 05:05

== ENCOUNTER 2022-12-22 12:13 | Observation (INO) ==
--- NOTE | 2022-12-21 09:24 | Anesthesiology Consultation ---
Date of Service December 21, 2022 Assessment & Plan (1) Encounter for pre-operative examination: - Per risk assessment analyst on 12/21/2022: No known infectious disease contacts, current infectious disease symptoms in past 10 days or COVID positive test result in the past 90 days. Chart Review Chart Review: Acceptable Risk for Surgery and Patient NOT seen in Pre Admission Testing History Surgery Operation Date: 12/22/22 13:55 Proposed Procedures p Laparoscopic Cholecystectomy - Gigi Cole, DO Height/Weight Height: 5 ft 4 in Weight: 65 kg Allergies Allergy/AdvReac Type Severity Reaction Status Date / Time No Known Allergies Allergy Verified 12/21/22 11:52 Medications Home Medications Medication Instructions Recorded Confirmed Last Taken calcium carbonate 600 mg-vitamin 1 tab PO BID #180 tabs 01/12/19 12/21/22 12/07/22 08:00 D3 10 mcg (400 unit) tablet cholecalciferol (vitamin D3) 50 2,000 units PO QAM 12/11/19 12/21/22 12/07/22 08:00 mcg (2,000 unit) tablet vitamin B12 0.5 mg-folic acid 1 mg 1 tab PO QAM 12/11/19 12/21/22 12/07/22 08:00 tablet aspirin 81 mg tablet,delayed 81 mg PO QAM 06/23/21 12/21/22 12/05/22 08:00 release ibandronate 150 mg tablet 150 mg PO .once monthly #3 tabs 12/14/21 12/21/22 12/04/22 08:00 ondansetron 4 mg disintegrating 4 mg PO Q6H PRN nausea and 11/16/22 12/21/22 Unknown tablet vomiting #14 tabs sucralfate 100 mg/mL oral 10 ml PO QID #420 mL 11/16/22 12/21/22 12/07/22 12:00 suspension (Carafate) omeprazole 40 mg capsule,delayed 40 mg PO BID #180 caps 11/21/22 12/21/22 12/07/22 08:00 release tramadol 50 mg tablet 100 mg PO Q12H PRN pain #60 tabs 11/21/22 12/21/22 Unknown amoxicillin 875 mg-potassium 1 tab PO BID #14 tabs 12/20/22 12/21/22 Unknown clavulanate 125 mg tablet oxycodone-acetaminophen 5 mg-325 1 tab PO Q6H PRN pain #30 tabs 12/20/22 12/21/22 Unknown mg tablet bupropion HCl 200 mg tablet,12 hr 200 mg PO BID #180 ea 12/21/22 Unknown sustained-release sertraline 100 mg tablet 100 mg PO QAM #90 tabs 12/21/22 Unknown Past Medical History Medical History Anxiety and depression Former smoker GERD (gastroesophageal reflux disease) Well controlled and stable with med Headache History of COVID-2021 > not hospitalized Hyperlipidemia Osteoporosis Peripheral neuropathy Pre-diabetes diet controlled Tick bite no issues following Past Family History Family History Mother Alcoholism Depression Suicide Father Myocardial infarction Hypertension Other No family history of adverse response to anesthesia Denies family history of Ovarian cancer Prostate cancer Breast cancer Colorectal cancer Past Surgical History Surgical History H/O colonoscopy H/O shoulder surgery Rt History of esophagogastroduodenoscopy (EGD) History of tonsillectomy History of tooth extraction History of total knee replacement bilat Social History Smoking Status: Former smoker tobacco type: cigarettes Do You Dip or Chew Tobacco: No Hx Alcohol Use: No Hx Substance Use: No substance use type: does not use Lab Results Anesthesia Preop Results Results Anesthesia Widget: WBC 11.67 K/ul (4.8-10.8) H 11/18/22 Hgb 14.7 g/dl (12.0-16.0) 11/18/22 Hct 45.5 % (37.0-47.0) 11/18/22 Plt 339 K/uL (130-400) 11/18/22 Na 136 mmol/L (136-145) 11/18/22 K 4.4 mmol/L (3.5-5.1) 11/18/22 Cl 103 mmol/L (98-107) 11/18/22 CO2 17 mmol/L (21-32) L 11/18/22 BUN 19 mg/dl (6-23) 11/18/22 Creat 0.96 mg/dl (0.6-1.2) 11/18/22 Glucose Level 101 mg/dl (70-99(Fasting)) H 11/18/22 Urine Color Yellow 11/18/22 Urine Appearance Clear (Clear) 11/18/22 Urine pH 6.0 (4.5-7.5) 11/18/22 Urine Specific [place] 1.016 (1.000-1.030) 11/18/22 Urine Protein Negative (Negative) 11/18/22 Urine Glucose (UA) Negative (Negative) 11/18/22 Urine Ketones 3+ (Negative) H 11/18/22 Urine Blood Negative (Negative) 11/18/22 Urine Nitrite Negative (Negative) 11/18/22 Urine Bilirubin Negative (Negative) 11/18/22 Urine Urobilinogen Negative (Negative) 11/18/22 Urine Leukocyte Esterase 2+ (Negative) H 11/18/22 Urine WBC (Auto) 10-30 /hpf (0-5) H 11/18/22 Urine RBC (Auto) 0-4 /hpf (0-4) 11/18/22 Urine Hyaline Casts (Auto) 0 /lpf (0-5) 11/18/22 Urine Epithelial Cells (Auto) 20-30 /lpf (0-5) H 11/18/22 Urine Bacteria (Auto) Negative (Negative) 11/18/22 Testing Electrocardiogram Date: 11/15/22 NSR, rate 81 bpm Left axis deviation Nonspecific T wave abnormality Other Testing Abdomen pelvis CT 11/18/22 1. No hydronephrosis or radiopaque stones. 2. Gallbladder distention without calcified stones or CT evidence of acute cholecystitis. Correlate clinically.
[~2022-12-22 12:13] MED LIST: LR 15ML/HR IV SCH; ceFAZolin 2000MG 2,000 MG/15 ML SYR IV SCH
[2022-12-22] MEDS ORDERED: ATROPINE SULFATE 0.1 MG/ML 10ML SYR IV PRN (13:15)
[2022-12-22] MEDS ORDERED: ONDANSETRON INJ 2 MG/ML 2 ML VIAL IV PRN ×2 (13:15→15:56)
[2022-12-22] MEDS ORDERED: ePHEDrine sulfate 50 MG/ML AMP IV PRN (13:15)
--- NOTE | 2022-12-22 13:54 | History & Physical Bridge Note ---
Date of Service December 22, 2022 History & Physical Bridge Note I have examined the patient, reviewed the History & Physical and in the interval since the performance of the History & Physical I have noted the following changes of clinical significance: no changes noted
[2022-12-22] MEDS ORDERED: PROPOFOL IV EMULSION 10 MG/ML 20 ML VIAL IV ONE (14:26)
[2022-12-22] MEDS ORDERED: LIDOCAINE 2% 2 ML VIAL/AMP(20MG/ML) INFIL ONE (14:26)
[2022-12-22] MEDS ORDERED: MIDAZOLAM HCL 1 MG/ML 2ML VIAL ONE (14:26)
[2022-12-22] MEDS ORDERED: fentaNYL citrate PF 100 MCG/2 ML VIAL ONE (14:27)
[2022-12-22] MEDS ORDERED: BUPIVACAINE/EPINEPHRINE 0.5% MPF 1:200,000 30 ML VIAL ONE (14:29)
[2022-12-22] MEDS ORDERED: DEXAMETHASONE SOD INJ 4 MG/ML VIAL ONE (14:53)
[2022-12-22] MEDS ORDERED: ONDANSETRON INJ 2 MG/ML 2 ML VIAL ONE (14:53)
[2022-12-22] MEDS ORDERED: ePHEDrine sulfate 50 MG/ML AMP ONE (15:13)
[2022-12-22] MEDS ORDERED: NEOSTIGMINE METHYLSULFATE 1 MG/ML 10ML VIAL ONE (15:13)
[2022-12-22] MEDS ORDERED: GLYCOPYRROLATE 0.2 MG/ML VIAL ONE (15:13)
[2022-12-22] MEDS ORDERED: SUGAMMADEX SODIUM 200 MG/2 ML VIAL IV ONE (15:41)
[2022-12-22] MEDS ORDERED: MoRPHine SULFATE 4 MG/ML 1 ML CARP\\VIAL IV PRN (15:56)
[2022-12-22] MEDS ORDERED: ACETAMINOPHEN 325 MG TAB PO PRN (15:56)
[2022-12-22] MEDS ORDERED: oxyCODONE/ACETAMINOPHEN 5mg/325mg TAB PO PRN (15:56)
[2022-12-22] MEDS ORDERED: MoRPHine SULFATE 2 MG/ML CARP IV PRN (15:56)
--- NOTE | 2022-12-22 15:56 | Operative Report ---
PG Post Operative Report Pre & Post Diagnosis Operation Date: 12/22/22 13:55 Pre-Op Diagnosis: Acute Cholecystitis Post-Op Diagnosis: Acute Cholecystitis I identified the patient and participated in the time-out.: Yes Procedure Operation Date: 12/22/22 13:55 Actual Procedures p Laparoscopic Cholecystectomy(Not Applicable) - Gigi Cole DO Surgeon Gigi Cole DO Design Drafter Chief nadia bush Estimated Blood Loss 20 Findings Consistent with Post-Op Diagnosis Specimens gallbladder Description of Procedure After informed consent was obtained the patient was taken to the operating room and placed in the supine position. After successful intubation the abdomen was sterilely prepped and draped in usual fashion. A periumbilical incision was made with an 11 blade scalpel and carried down through the soft tissue using electrocautery. The anterior rectus fascia was opened using electrocautery and 2 #0 Vicryl stay sutures were placed. The peritoneum was elevated with hemostats and incised under direct vision using Metzenbaum scissors. A finger sweep was performed and a 12 mm Dunn trocar was placed. The abdomen was insufflated to 18 mmHg. The laparoscope was inserted and the abdomen was examined in 360. The gallbladder was acutely inflamed.. A subxiphoid 5 mm port and 2 right upper quadrant 5 mm ports were placed under direct vision. The patient was placed in a reverse Trendelenburg position and slightly airplaned to the left. The gallbladder was grasped and elevated superiorly and laterally. A [place] dissector was used to take down adhesions around the neck of the gallbladder. The cystic duct was identified and skeletonized. It was clipped twice proximally and once distally and transected using a laparoscopic scissor. In similar fashion the cystic artery was identified and skeletonized clipped and divided. The gallbladder was removed from the gallbladder fossa with electrocautery. During this process a small hole was made in the gallbladder releasing a small amount of bile and small gallstones. it was placed into an Endo Catch bag. Thorough irrigation was performed. I was able to retrieve all of the stones using a grasper. We continued to use thorough irrigation until all the irrigant was clear. At the end of the procedure there was adequate hemostasis and no evidence of any bile leaks. A final look around the abdomen did show a probably 4 to 5 cm hiatal hernia with some gastric incarceration. the gallbladder and trochars were all removed and the abdomen was desufflated. The fascia of the camera port was closed using 0 Vicryl in a toccre-qu-eoshi fashion. All the wounds were irrigated and closed using 4-0 Monocryl. Marcaine was injected around them for postoperative analgesia and skin glue used as a dressing. The patient was awakened, extubated and transferred to recovery in stable condition. My assistant cross country coach was present throughout the entire case... helped with prepping the patient. With exposure for trocar placement, as well as retracted the gallbladder throughout the case and also assisted with wound closure and dressing placement. I attest to the content of the Intraoperative Record and any orders documented therein. Any exceptions are noted below.
[2022-12-22] MEDS ORDERED: SODIUM CHLORIDE 0.9% 1,000 ML IV SCH (16:00)
[2022-12-22] MEDS: HYDROmorphone INJ 1 MG/ML SYRINGE IV PRN ×2 (16:06→16:11)
[2022-12-22] MEDS ORDERED: PROMETHAZINE HCL 6.25 MG in SODIUM CHLORIDE 0.9% 50 ML IV PRN (16:34)
[2022-12-22] MEDS ORDERED: PROMETHAZINE HCL INJ 25 MG/ML 1 ML VIAL ONE (16:36)
--- NOTE | 2022-12-22 17:17 | Anesthesiology Progress Note ---
Date of Service December 22, 2022 Anesthesia Post Procedure Vital Signs Vital Signs: Temp Pulse Resp BP Pulse Ox O2 Del Method 12/22/22 16:20 82 25 H 135/69 95 Room Air 12/22/22 16:10 85 25 H 138/77 98 Room Air 12/22/22 16:00 96.8 F L 97 H 14 142/80 H 99 Room Air 12/22/22 12:52 97.5 F L 73 20 114/74 100 Room Air Transfer of Care Handoff Completed per policy Notes Mental Status: alert / awake / arousable and participated in evaluation Patient Amnestic to Procedure: Yes Nausea / Vomiting: adequately controlled Pain: adequately controlled Airway Patency, RR, SpO2: stable & adequate BP & HR: stable & adequate Hydration State: stable & adequate Anesthetic Complications: no major complications apparent and Pt Satisfied with anesthetic care
[2022-12-22] MEDS ORDERED: METOCLOPRAMIDE HCL INJ 5 MG/ML 2 ML VIAL ONE (17:56)
[2022-12-22] MEDS ORDERED: METOCLOPRAMIDE HCL INJ 5 MG/ML 2 ML VIAL IV STA (17:59)
[2022-12-22] MEDS ORDERED: HYDROmorphone INJ 2 MG/ML SYR/VIAL ONE (18:26)
[2022-12-22] MEDS ORDERED: HYDROmorphone INJ 1 MG/ML SYRINGE IV STA (18:26)
[2022-12-22] MEDS ORDERED: HYDROmorphone INJ 0.5 MG/0.5 ML SYR IV PRN (19:57)
[2022-12-22] MEDS ORDERED: LACTATED RINGER'S 1,000 ML IV SCH (19:57)
[2022-12-22] MEDS: HYDROmorphone INJ 0.5 MG/0.5 ML SYR IV PRN ×2 (20:08→23:49)
[2022-12-22] MEDS ORDERED: hydrALAZINE HCL 20 MG/ML VIAL IV STA (21:19)
[2022-12-22] MEDS: PANTOprazole 40 MG TAB PO SCH (21:21)
[2022-12-22] MEDS: SUCRALFATE 1 GM/10 ML UDC PO SCH (21:21)
[2022-12-22] MEDS: CALCIUM 600MG + VIT D 400 IU TAB PO SCH (21:21)
[2022-12-23] MEDS: oxyCODONE/ACETAMINOPHEN 5mg/325mg TAB PO PRN ×2 (02:23→06:41)
[2022-12-23 07:28] LABS: Basophils # (auto) 0.01 K/uL (0.00-0.20); Basophils % (auto) 0.1 %; Hematocrit (blood only) 42.1 % (37.0-47.0); Hemoglobin 13.4 g/dl (12.0-16.0); Immature Granulocytes # (auto) 0.07 K/uL (0.01-0.20); Immature Granulocytes % (auto) 0.5 %; Lymphocytes # (auto) 0.87 K/uL (1.20-3.40); Lymphocytes % (auto) 6.4 %; Mean Corpuscular Hemoglobin 26.6 pg (25.0-34.0); Mean Corpuscular Hgb Conc 31.8 g/dL (32.0-36.0); Mean Corpuscular Volume 83.5 fL (80.0-100.0); Mean Platelet Volume 10.7 fL (9.4-12.4); Monocytes # (auto) 0.85 K/uL (0.11-0.59); Monocytes % (auto) 6.2 %; Neutrophils # (auto) 11.89 K/uL (1.40-6.50); Neutrophils % (auto) 86.8 %; Platelet Count 246 K/uL (130-400); RDW Coefficient of Variation 15.2 % (11.5-14.5); RDW Standard Deviation 45.9 fL (36.4-46.3); Red Blood Count 5.04 M/uL (4.20-5.40); White Blood Count 13.69 K/ul (4.8-10.8)
[2022-12-23] MEDS ORDERED: CALCIUM CARBONATE 500 MG CHEWABLE TAB PO PRN ×2 (07:48→07:56)
[2022-12-23 07:54] LABS: Albumin Globulin Ratio 1.4 (0.9-2); Albumin Level 4.1 gm/dl (3.4-5.0); BUN Creatinine Ratio 14.5 (10-20); Bilirubin,Total 0.8 mg/dl (0.2-1.0); Calcium 8.8 mg/dl (8.6-10.3); Creatinine Clr Calc Pharmacy 65.1 ml/min; Est GFR (Non-African American) 84.6 ml/min; Potassium 3.8 mmol/L (3.5-5.1); Total Protein 7.1 gm/dl (6.0-8.3)
[2022-12-23] MEDS: SUCRALFATE 1 GM/10 ML UDC PO SCH (08:10)
[2022-12-23] MEDS: PANTOprazole 40 MG TAB PO SCH (08:11)
[2022-12-23] MEDS: CALCIUM 600MG + VIT D 400 IU TAB PO SCH (08:11)
--- NOTE | 2022-12-23 08:13 | Surgery Progress Note ---
Date of Service December 23, 2022 Assessment & Plan (1) Cholecystitis: Plan: Postoperative day 1 from laparoscopic cholecystectomy she is doing well okay for discharge. Instructions given. Admission and Anticipated Discharge Date Admission Date: December 22, 2022 Subjective Patient seen. She is feeling much better than last night. She was Last night after surgery for pain and nausea control. Physical Exam Physical Exam: Alert. No acute distress Abdomen soft with expected tenderness incisions look good Results & Data Vital Signs (Past 12 Hours) Vital Signs Temp Pulse Resp BP Pulse Ox O2 Del Method O2 Flow Rate 12/23/22 06:35 37.1 C 80 18 129/76 94 Room Air 12/23/22 02:27 37.1 C 84 18 131/75 92 Room Air 12/22/22 22:45 36.6 C 97 H 14 132/75 96 Room Air 1 12/22/22 21:45 36.6 C 90 18 131/77 97 Room Air 12/22/22 20:59 36.6 C 18 183/122 H 97 Nasal Cannula 2 PG Care Time/CCT Total # of Minutes Spent Total Time Spent with Patient: Total time spent is greater than 50% in coordination of care (as documented) at patient's floor/unit and/or counseling patient: Coding Level of Care Code 41063 Post Operative Follow-Up Diagnoses Cholecystitis K81.9
[2022-12-23] MEDS ORDERED: SERTRALINE HCL 100 MG TABLET PO SCH (09:00)
--- NOTE | 2022-12-26 11:59 | Discharge Summary ---
Date of Service December 23, 2022 Principal Diagnosis Acute Cholecystitis Discharge Exam Alert. No acute distress Abdomen soft with expected tenderness incisions look good Discharge Data Allergies Allergy/AdvReac Type Severity Reaction Status Date / Time No Known Allergies Allergy Verified 12/22/22 12:48 Procedures Performed Operation Date: 12/22/22 13:55 Actual Procedures p Laparoscopic Cholecystectomy(Not Applicable) - Gigi Cole DO Hospital Course (1) Cholecystitis: You underwent an elective laparoscopic cholecystectomy on 12/22/22. You stayed one night the hospital for pain control and were discharged the next day on 12/23/22 in stable condition, tolerating a diet and pain controlled. You were instructed to follow up in the office with Dr. Cole in 2 weeks. Total Time Total Time Spent Total Time Spent (In Minutes): 10 Discharge Plan Discharge Items Patient Disposition: Home - Self-Care Reason For Visit: Acute Cholecystitis Discharge Diagnosis: Cholecytectomy Activity: As commented below Lifting: No more than 25 pounds Bathing Comment: you can shower , no baths or pools for 2 weeks Exercise/Sports: Wait until after follow-up appointment Non-emergency contact: Surgeon Call non-emergency contact if: you have any medication questions, your temperature is above 101.5, your wound has increased redness, your wound has increased drainage and your wound pain has increased Follow-up/Referrals: Harlan Rhodes MD [Primary Care Provider] - 01/03/23 3:30 pm Gigi Cole DO [Surgeon] - 01/03/23 10:30 am ( follow up in 2 weeks ) Diet: Regular Addtl Attending Provider Instructions: You have surgical glue called dermabond on your surgical site incisions. You may shower with this on. This will tend to come off within a couple of weeks. Do not pick at it. Pending Studies at Discharge: Yes Studies:: surgical pathology Stand-Alone Forms: Anesthesia/Sedation, Adult, My [facility], Pain - Opioid Pain Management Medications and DC Order Prescriptions: Continued ibandronate 150 mg tablet 150 mg PO .once monthly Qty: 3 3RF Patient Comments: last dose 11/28/22 sertraline 100 mg tablet 100 mg PO QAM Qty: 90 3RF Rx Instructions: TAKE ONE TABLET BY MOUTH EVERY MORNING bupropion HCl 200 mg tablet sustained-release 12 hr 200 mg PO BID Qty: 180 3RF Rx Instructions: TAKE ONE TABLET BY MOUTH TWICE DAILY calcium carbonate-vitamin D3 600 mg(1,500mg) -400 unit tablet 1 tab PO BID Qty: 180 oxycodone-acetaminophen 5-325 mg tablet 1 tab PO Q6H PRN (Reason: pain) Qty: 30 0RF amoxicillin-pot clavulanate 875-125 mg tablet 1 tab PO BID Qty: 14 0RF aspirin 81 mg tablet,delayed release (DR/EC) 81 mg PO QAM omeprazole 40 mg capsule,delayed release(DR/EC) 40 mg PO BID Qty: 180 3RF tramadol 50 mg tablet 100 mg PO Q12H PRN (Reason: pain) Qty: 60 0RF vitamin G45-iceyw acid 0.5-1 mg tablet 1 tab PO QAM cholecalciferol (vitamin D3) 50 mcg (2,000 unit) tablet 2,000 units PO QAM sucralfate [Carafate] 100 mg/mL suspension 10 ml PO QID Qty: 420 0RF Rx Instructions: swish in mouth and swallow; use after food/drink: May substitute tablets as a slurry. ondansetron 4 mg tablet,disintegrating 4 mg PO Q6H PRN (Reason: nausea and vomiting) Qty: 14 0RF Discharge Orders: Discharge Order (Routine); Ordered 12/23/22 Ordered By: Gigi Lopez/Other Patient Handouts: DVT Post Op Prevention, Cholecystectomy Dc Admission Data Admit Date/Time: 12/22/22 18:55 Attending Provider: Gigi Cole Admit Provider: Gigi Cole Primary Care Provider: Harlan Rhodes Other Interventions: Discharge Summary Assessment (RN) Last Done: 12/23/22 09:41 Coding Level of Care Code 59271 IN/OBS DISCH 30 MIN/LESS Diagnoses Cholecystitis K81.9
== END 2022-12-23 12:07 | disposition home or self-care (01) ==
LOC: ASU 12:13 → 3W 12:13